=== PATIENT | male | born 1945 | race Caucasian/White ===

== ENCOUNTER 2019-10-15 14:45 | Inpatient (IN) ==
[2019-10-15] MEDS ORDERED: Dextrose Gel 15 GM/37.5 ML TUBE PO PRN ×2 (17:04)
[2019-10-15] MEDS ORDERED: D5% in Water 1,000 ML IVC PRN (17:04)
[2019-10-15] MEDS ORDERED: *HR* Dextrose 50 % in Water (Syg) 50 ML SYRINGE IVP PRN (17:04)
[2019-10-15] MEDS ORDERED: NON-FORMULARY MEDICATION 1 EACH EACH (Pravastatin Sodium [Pravachol] 80 MG) PO SCH (21:00)
[2019-10-15] MEDS: Ipratropium/Albuterol Neb 3 ML IH SCH (21:40)
[2019-10-15] MEDS: Insulin LISPRO 300 UNITS/3 ML VIAL SQ SCH (22:45)
[2019-10-15] MEDS: Furosemide 40 MG TABLET PO SCH (22:45)
[2019-10-15] MEDS: Pregabalin 75 MG CAPSULE PO SCH (22:45)
[2019-10-16] MEDS: Ipratropium/Albuterol Neb 3 ML IH SCH ×4 (04:01→21:47)
[2019-10-16 05:03] LABS: Basophils % 0.6 %; Eosinophils # 0.7 K/mcL (0.0-0.6); Hematocrit 32.7 % (37.5-50.1); Hemoglobin 10.7 g/dL (12.9-16.9); Immature Granulocytes % 0.4 % (0-4); Lymphocytes # 1.6 K/mcL (0.6-4.6); Lymphocytes % 21.5 %; Mean Corpuscular HGB Conc 32.7 g/dL (31.6-35.5); Mean Corpuscular Volume 94.8 fL (83.0-100.0); Mean Platelet Volume 10.2 fL (9.4-12.4); Monocytes # 0.7 K/mcL (0.0-1.3); Monocytes % 9.8 %; Neutrophils # 4.2 K/mcL (1.6-8.9); Platelet Count 203 K/mcL (140-400); Red Blood Count 3.45 M/mcL (4.19-5.50); Red Cell Distribution Width 15.7 % (11.5-14.5); Segmented Neutrophils % 58.7 %; White Blood Count 7.2 K/mcL (4.3-11.1)
[2019-10-16 05:08] LABS: Prothrombin Time 11.6 Seconds (9.4-12.1)
[2019-10-16] MEDS: amLODIPine 5 MG TABLET PO SCH (08:16)
[2019-10-16] MEDS: Pregabalin 75 MG CAPSULE PO SCH ×2 (08:16→20:50)
[2019-10-16] MEDS: Furosemide 40 MG TABLET PO SCH ×2 (08:17→20:52)
[2019-10-16] MEDS: Aspirin Enteric Coated 325 MG Tablet PO SCH (08:17)
[2019-10-16] MEDS: Insulin LISPRO 300 UNITS/3 ML VIAL SQ SCH ×4 (08:23→20:49)
[2019-10-16] MEDS: Ketoconazole 2% CRM 15 GM TUBE TP SCH ×2 (11:12→20:52)
[2019-10-16 11:49] LABS: BUN/Creatinine Ratio 17 (6-26); Blood Urea Nitrogen 23 mg/dL (8-23); Calcium 9.6 mg/dL (8.6-10.3); Carbon Dioxide 29 mEq/L (23-29); Chloride 103 mEq/L (98-107); Glucose 156 mg/dL (70-105); Osmolality,Calculated 295 (280-300); Sodium 139 mEq/L (136-145); eGFR For African Americans > 60 (> 60); eGFR For Non-African Americans 51 (> 60)
[2019-10-17] MEDS: Ipratropium/Albuterol Neb 3 ML IH SCH ×4 (03:55→20:51)
[2019-10-17] MEDS: Insulin LISPRO 300 UNITS/3 ML VIAL SQ SCH ×4 (08:11→20:52)
[2019-10-17] MEDS: Aspirin Enteric Coated 325 MG Tablet PO SCH (08:11)
[2019-10-17] MEDS: Furosemide 40 MG TABLET PO SCH ×2 (08:12→20:51)
[2019-10-17] MEDS: amLODIPine 5 MG TABLET PO SCH (08:12)
[2019-10-17] MEDS: Ketoconazole 2% CRM 15 GM TUBE TP SCH ×2 (08:12→20:52)
[2019-10-17] MEDS: Pregabalin 75 MG CAPSULE PO SCH ×2 (08:12→20:50)
[2019-10-18] MEDS: Ipratropium/Albuterol Neb 3 ML IH SCH ×4 (05:05→22:10)
[2019-10-18 05:47] LABS: Basophils # 0.1 K/mcL (0.0-0.2); Basophils % 0.6 %; Eosinophils # 0.7 K/mcL (0.0-0.6); Eosinophils % 8.2 %; Hematocrit 35.1 % (37.5-50.1); Hemoglobin 11.5 g/dL (12.9-16.9); Immature Granulocytes % 0.5 % (0-4); Lymphocytes # 1.3 K/mcL (0.6-4.6); Lymphocytes % 15.7 %; Mean Corpuscular HGB Conc 32.8 g/dL (31.6-35.5); Mean Corpuscular Hemoglobin 31.4 pg (28.0-33.3); Mean Corpuscular Volume 95.9 fL (83.0-100.0); Mean Platelet Volume 10.8 fL (9.4-12.4); Monocytes # 0.7 K/mcL (0.0-1.3); Monocytes % 8.2 %; Neutrophils # 5.5 K/mcL (1.6-8.9); Platelet Count 221 K/mcL (140-400); Red Blood Count 3.66 M/mcL (4.19-5.50); Red Cell Distribution Width 15.6 % (11.5-14.5); Segmented Neutrophils % 66.8 %; White Blood Count 8.2 K/mcL (4.3-11.1)
[2019-10-18 06:01] LABS: BUN/Creatinine Ratio 21 (6-26); Blood Urea Nitrogen 28 mg/dL (8-23); Calcium 9.6 mg/dL (8.6-10.3); Carbon Dioxide 29 mEq/L (23-29); Chloride 103 mEq/L (98-107); Glucose 200 mg/dL (70-105); Osmolality,Calculated 299 (280-300); Potassium 4.3 mEq/L (3.5-5.1); Sodium 139 mEq/L (136-145); eGFR For African Americans > 60 (> 60); eGFR For Non-African Americans 51 (> 60)
[2019-10-18] MEDS: amLODIPine 5 MG TABLET PO SCH (07:50)
[2019-10-18] MEDS: Pregabalin 75 MG CAPSULE PO SCH ×2 (08:16→20:42)
[2019-10-18] MEDS: Aspirin Enteric Coated 325 MG Tablet PO SCH (08:16)
[2019-10-18] MEDS: Furosemide 40 MG TABLET PO SCH ×2 (08:17→20:42)
[2019-10-18] MEDS: Ketoconazole 2% CRM 15 GM TUBE TP SCH ×2 (08:17→20:43)
[2019-10-18] MEDS: Insulin LISPRO 300 UNITS/3 ML VIAL SQ SCH ×4 (08:23→20:43)
[2019-10-19] MEDS: Ipratropium/Albuterol Neb 3 ML IH SCH ×4 (05:07→21:08)
[2019-10-19] MEDS: Aspirin Enteric Coated 325 MG Tablet PO SCH (07:48)
[2019-10-19] MEDS: Furosemide 40 MG TABLET PO SCH ×2 (07:48→20:42)
[2019-10-19] MEDS: amLODIPine 5 MG TABLET PO SCH (07:48)
[2019-10-19] MEDS: Ketoconazole 2% CRM 15 GM TUBE TP SCH ×2 (07:49→20:42)
[2019-10-19] MEDS: Pregabalin 75 MG CAPSULE PO SCH ×2 (07:49→20:42)
[2019-10-19] MEDS: Insulin LISPRO 300 UNITS/3 ML VIAL SQ SCH ×4 (07:50→21:42)
[2019-10-19] MEDS ORDERED: Acetaminophen 325 MG TABLET PO PRN (19:30)
[2019-10-20] MEDS: Ipratropium/Albuterol Neb 3 ML IH SCH ×4 (04:07→21:17)
[2019-10-20] MEDS: Insulin LISPRO 300 UNITS/3 ML VIAL SQ SCH ×4 (07:59→21:01)
[2019-10-20] MEDS: Aspirin Enteric Coated 325 MG Tablet PO SCH (08:00)
[2019-10-20] MEDS: Pregabalin 75 MG CAPSULE PO SCH ×2 (08:00→21:02)
[2019-10-20] MEDS: Furosemide 40 MG TABLET PO SCH (08:00)
[2019-10-20] MEDS: amLODIPine 5 MG TABLET PO SCH (08:00)
[2019-10-20] MEDS: Ketoconazole 2% CRM 15 GM TUBE TP SCH ×2 (08:00→21:02)
[2019-10-20 09:06] LABS: Hematocrit 36.4 % (37.5-50.1); Hemoglobin 11.7 g/dL (12.9-16.9); Mean Corpuscular HGB Conc 32.1 g/dL (31.6-35.5); Mean Corpuscular Volume 96.6 fL (83.0-100.0); Mean Platelet Volume 10.6 fL (9.4-12.4); Platelet Count 244 K/mcL (140-400); Red Blood Count 3.77 M/mcL (4.19-5.50); Red Cell Distribution Width 15.9 % (11.5-14.5); White Blood Count 8.6 K/mcL (4.3-11.1)
[2019-10-20 09:19] LABS: Calcium 9.9 mg/dL (8.6-10.3); Magnesium 2.1 mg/dL (1.6-2.6); Potassium 4.1 mEq/L (3.5-5.1)
[2019-10-20 11:15] LABS: Bilirubin,Urine Negative (Negative); Blood,Urine Trace-lysed (Negative); Clarity,Urine Clear (Clear); Color,Urine Yellow (Yellow); Glucose,Urine (UA) Normal (Normal); Ketones,Urine Negative (Negative); Leukocyte Esterase,Urine Small (Negative); Nitrite,Urine Negative (Negative); Protein,Urine Negative (Neg-Trace); Urobilinogen,Urine Normal (Normal)
[2019-10-20 12:05] LABS: Bacteria,Urine Few per hpf (None-Few)
[2019-10-20] MEDS: Azithromycin 250 MG TABLET PO SCH (16:43)
[2019-10-20 20:30] LABS: Adenovirus Not Detected (Not Detect); Bordetella Pertussis Not Detected (Not Detect); Chlamydophila pneumoniae Not Detected (Not Detect); Coronavirus 229E Not Detected (Not Detect); Coronavirus HKU1 Not Detected (Not Detect); Coronavirus NL63 Not Detected (Not Detect); Coronavirus OC43 Not Detected (Not Detect); Human Metapneumovirus Not Detected (Not Detect); Human Rhinovirus/Enterovirus Not Detected (Not Detect); Influenza A Subtype 2009 H1 Not Detected (Not Detect); Influenza B Not Detected (Not Detect); Mycoplasma pneumoniae Not Detected (Not Detect); Parainfluenza Virus 1 Not Detected (Not Detect); Parainfluenza Virus 2 Not Detected (Not Detect); Parainfluenza Virus 3 Not Detected (Not Detect); Parainfluenza Virus 4 Not Detected (Not Detect); Respiratory Syncytial Virus Not Detected (Not Detect)
[2019-10-21] MEDS: Ipratropium/Albuterol Neb 3 ML IH SCH ×4 (03:45→21:35)
[2019-10-21] MEDS: amLODIPine 5 MG TABLET PO SCH (08:12)
[2019-10-21] MEDS: Azithromycin 250 MG TABLET PO SCH (08:12)
[2019-10-21] MEDS: Insulin LISPRO 300 UNITS/3 ML VIAL SQ SCH ×4 (08:12→20:55)
[2019-10-21] MEDS: Aspirin Enteric Coated 325 MG Tablet PO SCH (08:12)
[2019-10-21] MEDS: Pregabalin 75 MG CAPSULE PO SCH ×2 (08:12→20:53)
[2019-10-21] MEDS: Ketoconazole 2% CRM 15 GM TUBE TP SCH ×2 (08:13→20:55)
[2019-10-21 09:15] LABS: Hematocrit 35.1 % (37.5-50.1); Hemoglobin 11.3 g/dL (12.9-16.9); Mean Corpuscular HGB Conc 32.2 g/dL (31.6-35.5); Mean Corpuscular Hemoglobin 31.2 pg (28.0-33.3); Mean Platelet Volume 10.9 fL (9.4-12.4); Platelet Count 225 K/mcL (140-400); Red Blood Count 3.62 M/mcL (4.19-5.50); Red Cell Distribution Width 15.7 % (11.5-14.5); White Blood Count 8.8 K/mcL (4.3-11.1)
[2019-10-21 09:33] LABS: Calcium 9.5 mg/dL (8.6-10.3); Magnesium 2.1 mg/dL (1.6-2.6); Potassium 3.9 mEq/L (3.5-5.1)
[2019-10-21] MEDS: Furosemide 40 MG TABLET PO SCH (20:53)
[2019-10-22] MEDS: Ipratropium/Albuterol Neb 3 ML IH SCH ×2 (03:46→09:39)
[2019-10-22] MEDS: Pregabalin 75 MG CAPSULE PO SCH (07:32)
[2019-10-22] MEDS: Furosemide 40 MG TABLET PO SCH (07:33)
[2019-10-22] MEDS: Azithromycin 250 MG TABLET PO SCH (07:33)
[2019-10-22] MEDS: Insulin LISPRO 300 UNITS/3 ML VIAL SQ SCH (07:33)
[2019-10-22] MEDS: amLODIPine 5 MG TABLET PO SCH (07:33)
[2019-10-22] MEDS: Aspirin Enteric Coated 325 MG Tablet PO SCH (07:33)
[2019-10-22] MEDS: Ketoconazole 2% CRM 15 GM TUBE TP SCH (07:34)
[2019-10-22 07:46] VITALS: BP 145/74
== END 2019-10-22 11:13 | disposition home or self-care (01) | DRG 945 ==
LOC: INPGRE 16:26
PROVIDERS: ADMIT Family Medicine; ATTEND Family Medicine

== ENCOUNTER 2020-10-28 09:56 | Inpatient (IN) ==
[2020-10-28] MEDS ORDERED: carvediloL 6.25 MG TABLET PO SCH (17:00)
[2020-10-28] MEDS: Ipratropium/Albuterol Neb 3 ML IH SCH ×2 (17:58→22:04)
[2020-10-28] MEDS ORDERED: Pregabalin 75 MG CAPSULE PO SCH (21:00)
[2020-10-29] MEDS ORDERED: Ondansetron 4 MG/2 ML VIAL IVP PRN (02:34)
[2020-10-29] MEDS ORDERED: Pantoprazole 40 MG VIAL IVP SCH (03:30)
[2020-10-29] MEDS ORDERED: 0.9 % Sodium Chloride 1,000 ML IVC ONE (03:33)
[2020-10-29] MEDS ORDERED: 0.9 % Sodium Chloride 1,000 ML ONE (03:37)
[2020-10-29] MEDS: Ipratropium/Albuterol Neb 3 ML IH SCH (03:38)
[2020-10-29 04:01] VITALS: BP 120/64
[2020-10-29] MEDS ORDERED: *HR* Enoxaparin 40 MG/0.4 ML SYRINGE SQ SCH (06:00)
[2020-10-29] MEDS ORDERED: Aspirin Enteric Coated 325 MG Tablet PO SCH (09:00)
[2020-10-29] MEDS ORDERED: Furosemide 40 MG TABLET PO SCH (09:00)
[2020-10-29] MEDS ORDERED: Multivit/Ca/Min/Fe/FA 1 TAB TABLET PO SCH (09:00)
[2020-10-29] MEDS ORDERED: NIFEdipine XL (24 HR) 60 MG TAB.ER.24 PO SCH (09:00)
[2020-10-29] MEDS ORDERED: *HR* GlipiZIDE XL (24 HR) 10 MG TABLET PO SCH (09:00)
== END 2020-10-29 04:15 | disposition short-term general hospital (02) | DRG 377 ==
LOC: INPGRE 15:14
PROVIDERS: ADMIT Family Medicine; ATTEND Family Medicine

== ENCOUNTER 2020-11-02 12:36 | Inpatient (IN) ==
[2020-11-02] MEDS ORDERED: Dextrose Gel 15 GM/37.5 ML TUBE PO PRN ×2 (18:58)
[2020-11-02] MEDS ORDERED: D5% in Water 1,000 ML IVC PRN (18:58)
[2020-11-02] MEDS ORDERED: *HR* Dextrose 50 % in Water (Vial) 50 ML VIAL IVP PRN (18:58)
[2020-11-02] MEDS: Insulin LISPRO 300 UNITS/3 ML VIAL SUBQ SCH (20:53)
[2020-11-02] MEDS: Pregabalin 75 MG CAPSULE PO SCH (21:03)
[2020-11-02] MEDS: GlipiZIDE 5 MG TABLET PO SCH (21:04)
[2020-11-02] MEDS: Ipratropium/Albuterol Neb 3 ML IH SCH (22:41)
[2020-11-03] MEDS: Ipratropium/Albuterol Neb 3 ML IH SCH ×4 (03:55→22:00)
[2020-11-03 06:42] LABS: Basophils % 0.4 %; Eosinophils # 0.5 K/mcL (0.0-0.6); Eosinophils % 5.2 %; Hematocrit 29.3 % (37.5-50.1); Hemoglobin 9.5 g/dL (12.9-16.9); Immature Granulocytes % 0.8 % (0-4); Lymphocytes # 1.4 K/mcL (0.6-4.6); Lymphocytes % 14.5 %; Mean Corpuscular HGB Conc 32.4 g/dL (31.6-35.5); Mean Corpuscular Hemoglobin 31.9 pg (28.0-33.3); Mean Corpuscular Volume 98.3 fL (83.0-100.0); Mean Platelet Volume 11.3 fL (9.4-12.4); Monocytes # 0.7 K/mcL (0.0-1.3); Neutrophils # 7.1 K/mcL (1.6-8.9); Platelet Count 209 K/mcL (140-400); Red Blood Count 2.98 M/mcL (4.19-5.50); Red Cell Distribution Width 14.9 % (11.5-14.5); Segmented Neutrophils % 72.1 %; White Blood Count 9.8 K/mcL (4.3-11.1)
[2020-11-03 07:02] LABS: Alanine Aminotransferase 15 Units/L (7-52); Albumin 3.4 g/dL (3.5-5.7); Albumin/Globulin Ratio 1.3 (1.1-2.2); Alkaline Phosphatase 62 Units/L (34-104); Aspartate Amino Transferase 15 Units/L (13-39); BUN/Creatinine Ratio 29 (6-26); Bilirubin,Total 0.3 mg/dL (0.3-1.0); Blood Urea Nitrogen 37 mg/dL (8-23); Calcium 8.7 mg/dL (8.6-10.3); Carbon Dioxide 30 mEq/L (23-29); Chloride 103 mEq/L (98-107); Globulin 2.7 g/dL (2.4-3.5); Glucose 114 mg/dL (70-105); Magnesium 1.8 mg/dL (1.6-2.6); Osmolality,Calculated 300 (280-300); Potassium 3.9 mEq/L (3.5-5.1); Sodium 140 mEq/L (136-145); Total Protein 6.1 g/dL (6.4-8.9); eGFR For African Americans > 60 (> 60); eGFR For Non-African Americans 54 (> 60)
[2020-11-03] MEDS: Insulin LISPRO 300 UNITS/3 ML VIAL SUBQ SCH ×4 (08:38→20:37)
[2020-11-03] MEDS: carvediloL 6.25 MG TABLET PO SCH ×2 (08:39→17:17)
[2020-11-03] MEDS: Aspirin Enteric Coated 81 MG Tablet PO SCH (08:43)
[2020-11-03] MEDS: Furosemide 40 MG TABLET PO SCH (08:43)
[2020-11-03] MEDS: GlipiZIDE 5 MG TABLET PO SCH ×2 (08:43→21:09)
[2020-11-03] MEDS: Pregabalin 75 MG CAPSULE PO SCH ×2 (08:43→21:08)
[2020-11-03] MEDS: Multivit/Ca/Min/Fe/FA 1 TAB TABLET PO SCH (08:44)
[2020-11-03] MEDS: NIFEdipine XL (24 HR) 60 MG TAB.ER.24 PO SCH (08:44)
[2020-11-04] MEDS: Ipratropium/Albuterol Neb 3 ML IH SCH ×4 (04:20→21:42)
[2020-11-04] MEDS: Acetaminophen 325 MG TABLET PO PRN (05:15)
[2020-11-04] MEDS: Insulin LISPRO 300 UNITS/3 ML VIAL SUBQ SCH ×4 (08:53→20:55)
[2020-11-04] MEDS: Aspirin Enteric Coated 81 MG Tablet PO SCH (08:54)
[2020-11-04] MEDS: Multivit/Ca/Min/Fe/FA 1 TAB TABLET PO SCH (08:54)
[2020-11-04] MEDS: GlipiZIDE 5 MG TABLET PO SCH ×2 (08:54→20:57)
[2020-11-04] MEDS: NIFEdipine XL (24 HR) 60 MG TAB.ER.24 PO SCH (08:54)
[2020-11-04] MEDS: carvediloL 6.25 MG TABLET PO SCH ×2 (08:54→17:25)
[2020-11-04] MEDS: Pregabalin 75 MG CAPSULE PO SCH ×2 (08:54→20:58)
[2020-11-04] MEDS: Furosemide 40 MG TABLET PO SCH (08:54)
[2020-11-04] MEDS: levoFLOXacin 750 MG TABLET PO SCH (17:25)
[2020-11-05] MEDS: Ipratropium/Albuterol Neb 3 ML IH SCH ×4 (04:21→22:53)
[2020-11-05] MEDS: Acetaminophen 325 MG TABLET PO PRN (04:50)
[2020-11-05] MEDS: Insulin LISPRO 300 UNITS/3 ML VIAL SUBQ SCH ×4 (08:31→20:03)
[2020-11-05] MEDS: NIFEdipine XL (24 HR) 60 MG TAB.ER.24 PO SCH (08:31)
[2020-11-05] MEDS: carvediloL 6.25 MG TABLET PO SCH ×2 (08:31→16:44)
[2020-11-05] MEDS: Pregabalin 75 MG CAPSULE PO SCH ×2 (08:31→20:09)
[2020-11-05] MEDS: Furosemide 40 MG TABLET PO SCH (08:31)
[2020-11-05] MEDS: GlipiZIDE 5 MG TABLET PO SCH ×2 (08:32→20:09)
[2020-11-05] MEDS: Multivit/Ca/Min/Fe/FA 1 TAB TABLET PO SCH (08:32)
[2020-11-05] MEDS: Aspirin Enteric Coated 81 MG Tablet PO SCH (08:32)
[2020-11-05] MEDS ORDERED: MOM Conc 10 ML UD.LIQ PO PRN (09:56)
[2020-11-05] MEDS: Sennosides 8.6 MG TABLET PO SCH (20:09)
[2020-11-06] MEDS: Ipratropium/Albuterol Neb 3 ML IH SCH ×4 (04:03→22:28)
[2020-11-06 07:36] LABS: Hematocrit 28.9 % (37.5-50.1); Hemoglobin 9.2 g/dL (12.9-16.9); Mean Corpuscular HGB Conc 31.8 g/dL (31.6-35.5); Mean Corpuscular Hemoglobin 32.4 pg (28.0-33.3); Mean Corpuscular Volume 101.8 fL (83.0-100.0); Mean Platelet Volume 12.7 fL (9.4-12.4); Platelet Count 140 K/mcL (140-400); Red Blood Count 2.84 M/mcL (4.19-5.50); Red Cell Distribution Width 15.3 % (11.5-14.5); White Blood Count 10.6 K/mcL (4.3-11.1)
[2020-11-06 07:57] LABS: Alanine Aminotransferase 15 Units/L (7-52); Albumin 3.3 g/dL (3.5-5.7); Albumin/Globulin Ratio 1.4 (1.1-2.2); Alkaline Phosphatase 59 Units/L (34-104); Aspartate Amino Transferase 17 Units/L (13-39); BUN/Creatinine Ratio 30 (6-26); Bilirubin,Total 0.3 mg/dL (0.3-1.0); Blood Urea Nitrogen 41 mg/dL (8-23); Calcium 8.6 mg/dL (8.6-10.3); Carbon Dioxide 30 mEq/L (23-29); Chloride 103 mEq/L (98-107); Globulin 2.3 g/dL (2.4-3.5); Glucose 140 mg/dL (70-105); Magnesium 2.5 mg/dL (1.6-2.6); Osmolality,Calculated 300 (280-300); Sodium 139 mEq/L (136-145); Total Protein 5.6 g/dL (6.4-8.9); eGFR For African Americans > 60 (> 60); eGFR For Non-African Americans 51 (> 60)
[2020-11-06] MEDS: GlipiZIDE 5 MG TABLET PO SCH ×2 (08:11→19:47)
[2020-11-06] MEDS: carvediloL 6.25 MG TABLET PO SCH ×2 (08:11→17:57)
[2020-11-06] MEDS: polyethylene glycoL 3350 17 GM POWD.PACK PO SCH (08:11)
[2020-11-06] MEDS: Pregabalin 75 MG CAPSULE PO SCH ×2 (08:11→19:47)
[2020-11-06] MEDS: Multivit/Ca/Min/Fe/FA 1 TAB TABLET PO SCH (08:11)
[2020-11-06] MEDS: Aspirin Enteric Coated 81 MG Tablet PO SCH (08:11)
[2020-11-06] MEDS: Furosemide 40 MG TABLET PO SCH (08:11)
[2020-11-06] MEDS: Sennosides 8.6 MG TABLET PO SCH ×2 (08:11→19:47)
[2020-11-06] MEDS: NIFEdipine XL (24 HR) 60 MG TAB.ER.24 PO SCH (08:11)
[2020-11-06] MEDS: Insulin LISPRO 300 UNITS/3 ML VIAL SUBQ SCH ×4 (08:12→21:56)
[2020-11-06] MEDS: levoFLOXacin 750 MG TABLET PO SCH (17:57)
[2020-11-06] MEDS: Acetaminophen 325 MG TABLET PO PRN (19:47)
[2020-11-07] MEDS: Ipratropium/Albuterol Neb 3 ML IH SCH ×4 (04:37→21:37)
[2020-11-07] MEDS: Insulin LISPRO 300 UNITS/3 ML VIAL SUBQ SCH ×4 (07:54→20:00)
[2020-11-07] MEDS: Furosemide 40 MG TABLET PO SCH (08:02)
[2020-11-07] MEDS: Multivit/Ca/Min/Fe/FA 1 TAB TABLET PO SCH (08:02)
[2020-11-07] MEDS: GlipiZIDE 5 MG TABLET PO SCH ×2 (08:02→20:04)
[2020-11-07] MEDS: Sennosides 8.6 MG TABLET PO SCH ×2 (08:02→20:04)
[2020-11-07] MEDS: polyethylene glycoL 3350 17 GM POWD.PACK PO SCH (08:02)
[2020-11-07] MEDS: Pregabalin 75 MG CAPSULE PO SCH ×2 (08:03→20:04)
[2020-11-07] MEDS: NIFEdipine XL (24 HR) 60 MG TAB.ER.24 PO SCH (08:03)
[2020-11-07] MEDS: Aspirin Enteric Coated 81 MG Tablet PO SCH (08:03)
[2020-11-07] MEDS: carvediloL 6.25 MG TABLET PO SCH ×2 (08:03→16:35)
[2020-11-08] MEDS: Ipratropium/Albuterol Neb 3 ML IH SCH ×4 (03:40→21:40)
[2020-11-08] MEDS: NIFEdipine XL (24 HR) 60 MG TAB.ER.24 PO SCH (08:12)
[2020-11-08] MEDS: Sennosides 8.6 MG TABLET PO SCH ×2 (08:12→20:04)
[2020-11-08] MEDS: Aspirin Enteric Coated 81 MG Tablet PO SCH (08:12)
[2020-11-08] MEDS: Multivit/Ca/Min/Fe/FA 1 TAB TABLET PO SCH (08:13)
[2020-11-08] MEDS: GlipiZIDE 5 MG TABLET PO SCH ×2 (08:13→19:58)
[2020-11-08] MEDS: Insulin LISPRO 300 UNITS/3 ML VIAL SUBQ SCH ×4 (08:13→19:46)
[2020-11-08] MEDS: Pregabalin 75 MG CAPSULE PO SCH ×2 (08:13→20:01)
[2020-11-08] MEDS: Furosemide 40 MG TABLET PO SCH (08:13)
[2020-11-08] MEDS: carvediloL 6.25 MG TABLET PO SCH ×2 (08:13→17:11)
[2020-11-08] MEDS: polyethylene glycoL 3350 17 GM POWD.PACK PO SCH (08:13)
[2020-11-09] MEDS: Ipratropium/Albuterol Neb 3 ML IH SCH ×4 (04:06→21:28)
[2020-11-09] MEDS: Insulin LISPRO 300 UNITS/3 ML VIAL SUBQ SCH ×4 (09:15→19:59)
[2020-11-09] MEDS: Aspirin Enteric Coated 81 MG Tablet PO SCH (09:24)
[2020-11-09] MEDS: Furosemide 40 MG TABLET PO SCH (09:24)
[2020-11-09] MEDS: NIFEdipine XL (24 HR) 60 MG TAB.ER.24 PO SCH (09:25)
[2020-11-09] MEDS: Multivit/Ca/Min/Fe/FA 1 TAB TABLET PO SCH (09:26)
[2020-11-09] MEDS: carvediloL 6.25 MG TABLET PO SCH ×2 (09:26→16:31)
[2020-11-09] MEDS: Sennosides 8.6 MG TABLET PO SCH ×2 (09:26→20:03)
[2020-11-09] MEDS: polyethylene glycoL 3350 17 GM POWD.PACK PO SCH (09:26)
[2020-11-09] MEDS: Pregabalin 75 MG CAPSULE PO SCH ×2 (09:26→20:03)
[2020-11-09] MEDS: GlipiZIDE 5 MG TABLET PO SCH ×2 (09:26→20:03)
[2020-11-10] MEDS: Ipratropium/Albuterol Neb 3 ML IH SCH ×2 (04:10→09:58)
[2020-11-10 07:24] VITALS: BP 126/75
[2020-11-10] MEDS: GlipiZIDE 5 MG TABLET PO SCH (08:02)
[2020-11-10] MEDS: carvediloL 6.25 MG TABLET PO SCH (08:02)
[2020-11-10] MEDS: Aspirin Enteric Coated 81 MG Tablet PO SCH (08:02)
[2020-11-10] MEDS: Pregabalin 75 MG CAPSULE PO SCH (08:02)
[2020-11-10] MEDS: NIFEdipine XL (24 HR) 60 MG TAB.ER.24 PO SCH (08:02)
[2020-11-10] MEDS: Multivit/Ca/Min/Fe/FA 1 TAB TABLET PO SCH (08:02)
[2020-11-10] MEDS: Furosemide 40 MG TABLET PO SCH (08:03)
[2020-11-10] MEDS: Insulin LISPRO 300 UNITS/3 ML VIAL SUBQ SCH (08:03)
[2020-11-10] MEDS: polyethylene glycoL 3350 17 GM POWD.PACK PO SCH (08:37)
[2020-11-10] MEDS: Sennosides 8.6 MG TABLET PO SCH (08:37)
== END 2020-11-10 11:58 | disposition home health service (06) | DRG 945 ==
LOC: INPGRE 18:21
PROVIDERS: ADMIT Family Medicine; ATTEND Family Medicine

== ENCOUNTER 2020-11-23 21:19 | Observation (INO) ==
[2020-11-23] MEDS ORDERED: Ipratropium/Albuterol Neb 3 ML ONE (21:24)
[2020-11-23] MEDS ORDERED: Ipratropium/Albuterol Neb 3 ML IH ONE (21:36)
[2020-11-23] MEDS ORDERED: methylPREDNISolone 125 MG/2 ML VIAL IVP ONE (21:36)
[2020-11-23 22:38] LABS: Basophils % 0.3 %; Eosinophils # 0.5 K/mcL (0.0-0.6); Eosinophils % 4.1 %; Hematocrit 30.2 % (37.5-50.1); Hemoglobin 9.6 g/dL (12.9-16.9); Immature Granulocytes % 0.3 % (0-4); Lymphocytes # 1.2 K/mcL (0.6-4.6); Lymphocytes % 9.1 %; Mean Corpuscular HGB Conc 31.8 g/dL (31.6-35.5); Mean Corpuscular Hemoglobin 31.8 pg (28.0-33.3); Mean Platelet Volume 11.2 fL (9.4-12.4); Monocytes # 0.6 K/mcL (0.0-1.3); Neutrophils # 10.3 K/mcL (1.6-8.9); Platelet Count 223 K/mcL (140-400); Red Blood Count 3.02 M/mcL (4.19-5.50); Red Cell Distribution Width 15.2 % (11.5-14.5); Segmented Neutrophils % 81.2 %; White Blood Count 12.7 K/mcL (4.3-11.1)
[2020-11-23 22:55] LABS: BUN/Creatinine Ratio 24 (6-26); Blood Urea Nitrogen 30 mg/dL (8-23); Calcium 8.6 mg/dL (8.6-10.3); Carbon Dioxide 30 mEq/L (23-29); Chloride 102 mEq/L (98-107); Glucose 259 mg/dL (70-105); Osmolality,Calculated 303 (280-300); Potassium 3.8 mEq/L (3.5-5.1); Sodium 139 mEq/L (136-145); eGFR For African Americans > 60 (> 60); eGFR For Non-African Americans 55 (> 60)
[2020-11-23 22:57] LABS: Troponin I 0.08 ng/mL (< 0.04)
[2020-11-24] MEDS ORDERED: Naloxone 0.4 MG/ML INJ IVP PRN ×4 (00:31→05:05)
[2020-11-24] MEDS ORDERED: Ondansetron ODT 4 MG TAB.RAPDIS SL PRN ×2 (00:34→05:05)
[2020-11-24] MEDS ORDERED: Ondansetron 4 MG/2 ML VIAL IVP PRN ×2 (00:34→05:05)
[2020-11-24] MEDS ORDERED: 0.9 % Sodium Chloride 1,000 ML IVC SCH ×2 (00:45→05:05)
[2020-11-24] MEDS ORDERED: D5% in Water 1,000 ML IVC PRN ×2 (01:05→05:05)
[2020-11-24] MEDS ORDERED: *HR* Dextrose 50 % in Water (Vial) 50 ML VIAL IVP PRN ×2 (01:05→05:05)
[2020-11-24] MEDS ORDERED: Dextrose Gel 15 GM/37.5 ML TUBE PO PRN ×4 (01:05→05:05)
[2020-11-24] MEDS ORDERED: Ipratropium/Albuterol Neb 3 ML ONE (05:05)
[2020-11-24] MEDS ORDERED: Acetaminophen 325 MG TABLET PO PRN (05:05)
[2020-11-24] MEDS: Ipratropium/Albuterol Neb 3 ML IH SCH ×4 (05:22→22:09)
[2020-11-24] MEDS: Pregabalin 75 MG CAPSULE PO SCH ×2 (08:46→20:08)
[2020-11-24] MEDS: NIFEdipine XL (24 HR) 60 MG TAB.ER.24 PO SCH (08:46)
[2020-11-24] MEDS: Aspirin Enteric Coated 81 MG Tablet PO SCH (08:46)
[2020-11-24] MEDS: *HR* GlipiZIDE XL (24 HR) 10 MG TABLET PO SCH (08:47)
[2020-11-24] MEDS: carvediloL 6.25 MG TABLET PO SCH ×2 (08:47→17:09)
[2020-11-24] MEDS: Multivit/Ca/Min/Fe/FA 1 TAB TABLET PO SCH (08:47)
[2020-11-24] MEDS: polyethylene glycoL 3350 17 GM POWD.PACK PO SCH (08:53)
[2020-11-24] MEDS ORDERED: Furosemide 20 MG TABLET PO SCH (09:00)
[2020-11-24] MEDS: Budesonide/Formoterol 160/4.5 1 PUFF INH IH SCH ×2 (10:18→22:09)
[2020-11-24] MEDS: MethylPREDNISolone 40 MG/ML VIAL IVP SCH ×2 (10:39→17:09)
[2020-11-24] MEDS: Furosemide 40 MG/4 ML VIAL IVP SCH (10:51)
[2020-11-24] MEDS: Azithromycin 500 MG in 0.9 % Sodium Chloride 250 ML IVPB SCH (10:53)
[2020-11-24] MEDS: Insulin LISPRO 300 UNITS/3 ML VIAL SUBQ SCH ×2 (12:29→17:12)
[2020-11-24] MEDS ORDERED: Insulin LISPRO 300 UNITS/3 ML VIAL SUBQ SCH (21:00)
[2020-11-25] MEDS: MethylPREDNISolone 40 MG/ML VIAL IVP SCH ×2 (00:01→08:39)
[2020-11-25] MEDS: Ipratropium/Albuterol Neb 3 ML IH SCH ×2 (03:29→10:33)
[2020-11-25 05:57] LABS: Basophils % 0.1 %; Hematocrit 30.2 % (37.5-50.1); Hemoglobin 9.6 g/dL (12.9-16.9); Immature Granulocytes % 0.7 % (0-4); Lymphocytes # 0.8 K/mcL (0.6-4.6); Lymphocytes % 6.3 %; Mean Corpuscular HGB Conc 31.8 g/dL (31.6-35.5); Mean Corpuscular Hemoglobin 31.7 pg (28.0-33.3); Mean Corpuscular Volume 99.7 fL (83.0-100.0); Mean Platelet Volume 11.2 fL (9.4-12.4); Monocytes # 0.2 K/mcL (0.0-1.3); Monocytes % 1.8 %; Neutrophils # 10.9 K/mcL (1.6-8.9); Platelet Count 231 K/mcL (140-400); Red Blood Count 3.03 M/mcL (4.19-5.50); Red Cell Distribution Width 15.2 % (11.5-14.5); Segmented Neutrophils % 91.1 %
[2020-11-25] MEDS ORDERED: *HR* Enoxaparin 40 MG/0.4 ML SYRINGE SQ SCH (06:00)
[2020-11-25 06:18] LABS: BUN/Creatinine Ratio 26 (6-26); Blood Urea Nitrogen 33 mg/dL (8-23); Carbon Dioxide 31 mEq/L (23-29); Chloride 102 mEq/L (98-107); Glucose 245 mg/dL (70-105); Osmolality,Calculated 305 (280-300); Potassium 4.2 mEq/L (3.5-5.1); Sodium 140 mEq/L (136-145); eGFR For African Americans > 60 (> 60); eGFR For Non-African Americans 55 (> 60)
[2020-11-25] MEDS: Furosemide 40 MG/4 ML VIAL IVP SCH (08:38)
[2020-11-25] MEDS: NIFEdipine XL (24 HR) 60 MG TAB.ER.24 PO SCH (08:40)
[2020-11-25] MEDS: *HR* GlipiZIDE XL (24 HR) 10 MG TABLET PO SCH (08:40)
[2020-11-25] MEDS: Pregabalin 75 MG CAPSULE PO SCH (08:40)
[2020-11-25] MEDS: carvediloL 6.25 MG TABLET PO SCH (08:40)
[2020-11-25] MEDS: Multivit/Ca/Min/Fe/FA 1 TAB TABLET PO SCH (08:40)
[2020-11-25] MEDS: Aspirin Enteric Coated 81 MG Tablet PO SCH (08:40)
[2020-11-25] MEDS: Azithromycin 500 MG in 0.9 % Sodium Chloride 250 ML IVPB SCH (08:41)
[2020-11-25] MEDS: Insulin LISPRO 300 UNITS/3 ML VIAL SUBQ SCH ×2 (08:42→12:11)
[2020-11-25] MEDS: polyethylene glycoL 3350 17 GM POWD.PACK PO SCH (08:46)
[2020-11-25] MEDS: Budesonide/Formoterol 160/4.5 1 PUFF INH IH SCH (10:32)
[2020-11-25 12:22] VITALS: BP 133/57
== END 2020-11-25 14:25 | disposition short-term general hospital (02) ==
LOC: INPGRE 21:19 → EMEROOGRE 21:19 → INPGRE 11-24 01:06
PROVIDERS: ADMIT Family Medicine; ATTEND Family Medicine